=== PATIENT | male | born 1990 | race Caucasian/White ===

== ENCOUNTER 2019-05-09 23:16 | Emergency (ER) | payer MEDICAID ==
[~2019-05-09] VITALS: Ht 172.7 cm; Wt 91.8 kg
[2019-05-09 23:34] VITALS: BP 111/75
[2019-05-10] MEDS ORDERED: HYDR7CRE2 TP (00:16)
[2019-05-10] MEDS ORDERED: DIPH25CA83 PO (00:23)
== END 2019-05-10 00:38 | disposition home or self-care (01) ==
LOC: ER 23:16
DX: L29.9 Pruritus, unspecified (principal); F20.9 Schizophrenia, unspecified; Z88.8 Allergy status to other drugs, medicaments and biological substances; Z79.899 Other long term (current) drug therapy
CPT/HCPCS: 99282

== ENCOUNTER 2022-11-11 14:18 | Inpatient (IN) | payer MEDICAID ==
[~2022-11-11] VITALS: Ht 172.7 cm; Wt 90.0 kg
[~2022-11-11 14:18] MED LIST: DIPH25CA83 PO; HYDR7CRE2 TP
[2022-11-11] MEDS ORDERED: ondansetron 4mg rapidly disintigrating tab PO ONE (15:00)
[2022-11-11 15:12] LABS: BASOPHILS % (AUTO) 0.2 % (0-1); EOSINOPHILS # (AUTO) 0.1 X10'3 (0-0.9); EOSINOPHILS % (AUTO) 1.2 % (0-6); HEMOGLOBIN 13.8 g/dl (14.0-17.9); LYMPHOCYTES # (AUTO) 1.4 X10'3 (1.1-4.8); LYMPHOCYTES % (AUTO) 11.9 % (21-51); MEAN CORPUSCULAR HEMOGLOBIN 30.8 PG (27.0-31.0); MEAN CORPUSCULAR HGB CONC 33.6 g/dL (33.0-36.5); MEAN CORPUSCULAR VOLUME 91.6 FL (78-98); MONOCYTES # (AUTO) 1.5 X10'3 (0-0.9); NEUTROPHILS # (AUTO) 8.7 X10'3 (1.8-7.7); NEUTROPHILS % (AUTO) 73.7 % (42-75); PLATELET COUNT 209 X10'3 (140-440); RED BLOOD COUNT 4.47 X10'6 (4.70-6.10); RED CELL DISTRIBUTION WIDTH 14.2 % (11.5-14.5); WHITE BLOOD COUNT 11.8 X10'3 (4.5-11.0)
[2022-11-11 15:27] LABS: CLARITY,URINE CLEAR (Clear); COLOR,URINE AMBER (Yellow); GLUCOSE, URINE NEGATIVE (Neg); KETONES,URINE >=80 mg/dl (Neg); LEUKOCYTE ESTERASE ,URINE NEGATIVE (Neg); NITRITES, URINE NEGATIVE (Neg); OCCULT BLOOD,URINE SMALL (Neg); PROTEIN,URINE 30 mg/dl (Neg)
[2022-11-11 15:30] LABS: UA COLLECTION TYPE CLN CATCH MIDSTREAM
[2022-11-11 15:34] LABS: ALANINE AMINOTRANSFERASE 20 U/L (12-78); ALBUMIN 3.7 G/DL (3.4-5.0); ALKALINE PHOSPHATASE 53 IU/L (46-116); ANION GAP 11 (8-16); ASPARTATE AMINO TRANSFERASE 16 U/L (10-37); BILIRUBIN,TOTAL 0.4 MG/DL (0.1-1.0); BLOOD UREA NITROGEN 22 MG/DL (7-18); BUN/CREATININE RATIO 13.4 (5.4-32.0); CALCIUM 8.9 MG/DL (8.5-10.1); CHLORIDE 101 MMOL/L (99-107); CREATININE 1.64 MG/DL (0.60-1.10); GLUCOSE 106 MG/DL (70-104); LIPASE < 50 U/L (73-393); POTASSIUM 3.7 MMOL/L (3.5-5.1); SODIUM 137 MMOL/L (135-145); TOTAL CARBON DIOXIDE 25.4 MMOL/L (24-32); TOTAL PROTEIN 7.4 G/DL (6.4-8.2); eGFR 49 ML/MIN
[2022-11-11 15:37] LABS: BACTERIA,URINE NONE SEEN /HPF (Neg); MUCUS STRANDS NONE SEEN /LPF (Neg); SQUAMOUS EPITHELIAL CELL,UR FEW /LPF (FEW); WBC,URINE 0-4 /HPF (0-4)
[2022-11-11] MEDS ORDERED: morphine 4 MG/ML inj SYRINge IV ONE (16:20)
[2022-11-11] MEDS ORDERED: acetaminophen 325mg tablet PO PRN (19:10)
[2022-11-11] MEDS ORDERED: morphine 2 MG/ML inj. syringe IV PRN (19:10)
[2022-11-11] MEDS: normal saline 1000ml 1,000 ML IV SCH (19:46)
[2022-11-11 20:45] VITALS: BP 158/75
[2022-11-11] MEDS: morphine 2 MG/ML inj. syringe IV PRN (21:02)
[2022-11-11] MEDS ORDERED: DIVA500T2 PO (21:49)
[2022-11-11] MEDS ORDERED: QUET-1 PO (21:51)
[2022-11-11] MEDS ORDERED: QUETIAPINE PO (21:54)
[2022-11-11] MEDS ORDERED: QUETIAPINE FUMARATE PO (21:57)
[2022-11-11] MEDS ORDERED: PROP40TA72 PO (21:58)
[2022-11-11] MEDS: quetiapine 100mg tablet PO SCH (23:00)
[2022-11-11] MEDS: ondansetron/PF 4mg/2ml inj IV PRN (23:36)
[2022-11-12] VITALS (15 sets, daily range): BP systolic 100–149; BP diastolic 54–81
[2022-11-12] MEDS: morphine 2 MG/ML inj. syringe IV PRN ×6 (00:51→22:42)
--- NOTE | 2022-11-12 00:53 | NUR ---
c/o sever pain, Morphine given Addendum: 11/12/22 at 0053 by Chela Chase RN Amended: Links added.
[2022-11-12] MEDS: normal saline 1000ml 1,000 ML IV SCH ×2 (03:40→15:29)
[2022-11-12] MEDS: ondansetron/PF 4mg/2ml inj IV PRN ×2 (05:19→22:40)
[2022-11-12 05:58] LABS: BASOPHILS % (AUTO) 0.2 % (0-1); EOSINOPHILS # (AUTO) 0.3 X10'3 (0-0.9); EOSINOPHILS % (AUTO) 2.1 % (0-6); HEMATOCRIT 41.1 % (42.0-52.0); HEMOGLOBIN 13.5 g/dl (14.0-17.9); LYMPHOCYTES % (AUTO) 16.9 % (21-51); MEAN CORPUSCULAR HEMOGLOBIN 30.1 PG (27.0-31.0); MEAN CORPUSCULAR HGB CONC 32.7 g/dL (33.0-36.5); MEAN CORPUSCULAR VOLUME 91.9 FL (78-98); MEAN PLATELET VOLUME 8.8 FL (7.4-10.4); MONOCYTES # (AUTO) 1.6 X10'3 (0-0.9); MONOCYTES % (AUTO) 13.7 % (2-12); NEUTROPHILS % (AUTO) 67.1 % (42-75); PLATELET COUNT 223 X10'3 (140-440); RED BLOOD COUNT 4.47 X10'6 (4.70-6.10); WHITE BLOOD COUNT 11.9 X10'3 (4.5-11.0)
[2022-11-12 06:08] LABS: ALANINE AMINOTRANSFERASE 17 U/L (12-78); ALBUMIN 3.6 G/DL (3.4-5.0); ALBUMIN/GLOBULIN RATIO 0.9 (1.1-1.5); ALKALINE PHOSPHATASE 63 IU/L (46-116); ANION GAP 10 (8-16); ASPARTATE AMINO TRANSFERASE 18 U/L (10-37); BILIRUBIN,TOTAL 0.5 MG/DL (0.1-1.0); BLOOD UREA NITROGEN 15 MG/DL (7-18); BUN/CREATININE RATIO 9.8 (5.4-32.0); CALCIUM 8.8 MG/DL (8.5-10.1); CHLORIDE 102 MMOL/L (99-107); CREATININE 1.53 MG/DL (0.60-1.10); GLUCOSE 122 MG/DL (70-104); POTASSIUM 3.5 MMOL/L (3.5-5.1); SODIUM 136 MMOL/L (135-145); TOTAL CARBON DIOXIDE 23.8 MMOL/L (24-32); TOTAL PROTEIN 7.5 G/DL (6.4-8.2); eGFR 53 ML/MIN
--- NOTE | 2022-11-12 06:52 | NUR ---
Patient in room NADINE 358. I have received report from KAYLEN RN and had the opportunity to ask questions and assume patient care.
--- NOTE | 2022-11-12 07:49 | NUR ---
PAGER ID: [phone] MESSAGE: Pt Los Cummins RM 146D Pt is nausea and vomiting, zofran not effective can i get an order for reglan? vinicio 2563
[2022-11-12] MEDS: propranolol 40mg tablet PO SCH ×2 (07:56→22:32)
[2022-11-12] MEDS: divalproex sodium 500mg tablet.DR PO SCH ×2 (07:56→22:30)
--- NOTE | 2022-11-12 09:39 | NUR ---
PAGER ID: [phone] MESSAGE: Pt Los Cummins RM 166F Pt is still nauseas and vomiting, zofran not effective can i get an order for nausea? vinicio 7549
[2022-11-12] MEDS ORDERED: metoclopramide 10mg tablet PO PRN (10:25)
[2022-11-12] MEDS ORDERED: valproate sod inj 500 MG in normal saline 50ml IV soln 50 ML IV ONE (11:15)
[2022-11-12] MEDS ORDERED: valproate sod inj 500 MG in normal saline 50ml IV soln 45 ML IV ONE (11:15)
--- NOTE | 2022-11-12 12:24 | NUR ---
PAGER ID: [phone] MESSAGE: Pt Los Cummins RM 494A pt is having severe anxiety can we get an order for ativan? vinicio surg 2536
[2022-11-12] MEDS ORDERED: LORazepam 2 mg/ml vial IV PRN (12:55)
[2022-11-12] MEDS ORDERED: QUET200T31 PO (13:53)
--- NOTE | 2022-11-12 16:30 | NUR ---
I have reviewed and agree with all interventions, assessments performed, and documentation by Addie Miller LVN.
[2022-11-12 17:03] LABS: PRE OP PARTIAL THROMB. TIME 26 SECONDS (22-32)
--- NOTE | 2022-11-12 18:45 | NUR ---
I have received report from RASHMI SUN and had the opportunity to ask questions and assume patient care.PATIENT IN OR AT THIS TIME FOR URETERAL STENT PLACEMENT BY .
[2022-11-12] MEDS ORDERED: famotidine/PF 10 mg/ml inj IV ONE (19:00)
[2022-11-12] MEDS ORDERED: sevoflurane 250ml liquid IH ONE (19:22)
[2022-11-12] MEDS ORDERED: morphine 4 MG/ML inj SYRINge IV PRN (19:25)
[2022-11-12] MEDS ORDERED: labetalol 20mg/4ml (5mg/ml) syringe IV PRN (19:25)
[2022-11-12] MEDS ORDERED: HYDROmorphone/PF 0.2 MG/ML SYRINGE IV PRN ×2 (19:25)
[2022-11-12] MEDS ORDERED: ringers solution, lacted 1,000 ML IV SCH (19:25)
[2022-11-12] MEDS ORDERED: meperidine/PF 25mg/ml syringe IV PRN (19:25)
[2022-11-12] MEDS ORDERED: hydrALAZINE 20mg/ml inj. IV PRN (19:25)
[2022-11-12] MEDS ORDERED: ondansetron/PF 4mg/2ml inj IV PRN (19:25)
[2022-11-12] MEDS ORDERED: fentaNYL/PF 50MCG/1 ML 2ML syringe ONE (19:33)
[2022-11-12] MEDS ORDERED: midazolam 1 mg/ML 2ml injection ONE (19:58)
[2022-11-12] MEDS ORDERED: propofol inj 20 ML IV ONE ×2 (20:25)
[2022-11-12] MEDS ORDERED: ceFAZolin 1000mg inj ONE ×2 (20:25)
[2022-11-12] MEDS ORDERED: rocuronium 10mg/ml inj IV ONE (20:26)
[2022-11-12] MEDS ORDERED: dexamethasone sod phosphate 4mg/ml inj. ONE (20:26)
[2022-11-12] MEDS ORDERED: neostigmine methylsulfate 1 MG/ML 10ml vial ONE (20:26)
[2022-11-12] MEDS ORDERED: LIDOcaine 2% (20mg/ml) 5ml vial ONE (20:26)
[2022-11-12] MEDS ORDERED: glycopyrrolate 0.2mg/ml inj ONE (20:26)
--- NOTE | 2022-11-12 20:40 | NUR ---
Received from OR via BED, accompanied by Anesthesiologist DR RODRIGES and report given by Anesthesiologist AND CAMPUS SECURITY OFFICER. PT AWAKE, DENIES PAIN. NO DRESSINGS. PT STATES HE FEELS LIKE HE NEEDS TO URINATE, ASSISTED W/URINAL, PT ABLE TO VOID VERY SMALL AMT OF PINK URINE. Addendum: 11/12/22 at 2101 by Charlotte Huston RN Amended: Links added.
--- NOTE | 2022-11-12 21:40 | NUR ---
Report called to receiving nurse. Transferred via BED, NO Belongings. RECEIVING RN AT BEDSIDE TO RECEIVE PT, BLL, CALL LIGHT GIVEN, SIDE RAILS UP X 2. PENILE IRRITATION SLIGHTLY IMPROVED. RN EXPLAINED TO PT W/REMINDERS THAT IT WILL TAKE A WHILE FOR THE SENSATION OF HAVING TO VOID TO DECREASE. PT VOIDED X 3 SMALL AMTS OF PINK URINE. Special Issues communicated to receiving nurse. YES. Addendum: 11/12/22 at 2153 by Charlotte Huston RN Amended: Links added.
--- NOTE | 2022-11-12 21:45 | NUR ---
PATIENT BACK TO RM 358B FROM RECOVERY ROOM AFTER URETERAL STENT PLACEMENT WAS DONE . PLACED COMFORTABLE IN BED. VITAL SIGNS MONITORED PER POST OP.
--- NOTE | 2022-11-12 22:19 | NUR ---
Pt is anxious, pacing in room, went to bathroom states voided large amt of urine in toilet. states he could not control it and did not have time to use urinal. States "It just kept coming" Urine pink in toilet, states he thinks he passed stone. vss stayed in bed for a few minutes then got back up to bathroom. C/o Debbi, Rn notified. Addendum: 11/12/22 at 2222 by Chela Chase RN Amended: Links added.
--- NOTE | 2022-11-12 22:22 | NUR ---
Pt back from recovery alert and oriBladimir mishra with patient Addendum: 11/12/22 at 2223 by Chela Chase RN Amended: Links added.
[2022-11-12] MEDS: quetiapine 100mg tablet PO SCH (22:31)
[2022-11-13] VITALS: BP 135/96
[2022-11-13 01:00] VITALS: BP 122/63
[2022-11-13] MEDS: normal saline 1000ml 1,000 ML IV SCH (01:10)
[2022-11-13 06:00] VITALS: BP 116/67
--- NOTE | 2022-11-13 06:45 | NUR ---
Problems reprioritized. Patient report given, questions answered & plan of care reviewed with ROSEANN CONKLIN.
[2022-11-13 07:31] LABS: BASOPHILS % (AUTO) 0.1 % (0-1); EOSINOPHILS % (AUTO) 0.1 % (0-6); HEMATOCRIT 39.4 % (42.0-52.0); LYMPHOCYTES # (AUTO) 1.4 X10'3 (1.1-4.8); LYMPHOCYTES % (AUTO) 16.3 % (21-51); MEAN CORPUSCULAR HEMOGLOBIN 30.7 PG (27.0-31.0); MEAN CORPUSCULAR HGB CONC 33.1 g/dL (33.0-36.5); MEAN CORPUSCULAR VOLUME 92.7 FL (78-98); MEAN PLATELET VOLUME 8.6 FL (7.4-10.4); MONOCYTES # (AUTO) 0.5 X10'3 (0-0.9); MONOCYTES % (AUTO) 5.7 % (2-12); NEUTROPHILS # (AUTO) 6.6 X10'3 (1.8-7.7); NEUTROPHILS % (AUTO) 77.8 % (42-75); PLATELET COUNT 202 X10'3 (140-440); RED BLOOD COUNT 4.25 X10'6 (4.70-6.10); WHITE BLOOD COUNT 8.5 X10'3 (4.5-11.0)
[2022-11-13 07:56] LABS: ALANINE AMINOTRANSFERASE 17 U/L (12-78); ALBUMIN 3.3 G/DL (3.4-5.0); ALBUMIN/GLOBULIN RATIO 0.8 (1.1-1.5); ALKALINE PHOSPHATASE 49 IU/L (46-116); ANION GAP 9 (8-16); ASPARTATE AMINO TRANSFERASE 15 U/L (10-37); BILIRUBIN,TOTAL 0.3 MG/DL (0.1-1.0); BLOOD UREA NITROGEN 14 MG/DL (7-18); BUN/CREATININE RATIO 10.7 (5.4-32.0); CHLORIDE 104 MMOL/L (99-107); CREATININE 1.31 MG/DL (0.60-1.10); GLUCOSE 130 MG/DL (70-104); POTASSIUM 4.4 MMOL/L (3.5-5.1); SODIUM 139 MMOL/L (135-145); TOTAL CARBON DIOXIDE 26.1 MMOL/L (24-32); TOTAL PROTEIN 7.3 G/DL (6.4-8.2); eGFR 63 ML/MIN
[2022-11-13] MEDS ORDERED: HYDR-3965 PO (08:35)
[2022-11-13] MEDS: propranolol 40mg tablet PO SCH (08:57)
[2022-11-13] MEDS: divalproex sodium 500mg tablet.DR PO SCH (08:57)
== END 2022-11-13 11:24 | disposition home or self-care (01) | DRG 463 ==
LOC: ER 14:18 → ED HOLD 19:10 → SUR 3N 20:45
PROVIDERS: ADMIT Internal Medicine; ATTEND Internal Medicine
PROC: BT1D1ZZ Fluoroscopy of Right Kidney, Ureter and Bladder using Low Osmolar Contrast (ICD-10-PCS; 2022-11-12)
PROC: 0TF68ZZ Fragmentation in Right Ureter, Via Natural or Artificial Opening Endoscopic (ICD-10-PCS; 2022-11-12)
PROC: 0T768DZ Dilation of Right Ureter with Intraluminal Device, Via Natural or Artificial Opening Endoscopic (ICD-10-PCS; principal; 2022-11-12 19:22)
DX: N13.6 Pyonephrosis (principal); K76.0 Fatty (change of) liver, not elsewhere classified; F20.9 Schizophrenia, unspecified; F31.9 Bipolar disorder, unspecified; K44.9 Diaphragmatic hernia without obstruction or gangrene; Z79.899 Other long term (current) drug therapy; Z87.442 Personal history of urinary calculi; Z91.51 Personal history of suicidal behavior; Z88.8 Allergy status to other drugs, medicaments and biological substances
CPT/HCPCS: 36415; 74176; 74420; 76000; 80053; 81001; 82948; 83690; 85025; 85610; 85730; 87081; 96374; 96375; 96376; 99285; A4618; C1769; C2617; G0378; J0690; J1100; J2060; J2250; J2270; J2405; J2704; J2710; J3010; J3490; J7030; J7120